=== PATIENT | female | born 1950 | race Caucasian/White ===

== ENCOUNTER → 2017-02-22 | Outpatient (CLI) | payer MEDICARE, OTHER ==
[2017-02-22 17:37] LABS: BUN/CREATININE RATIO 20 (0-10)
== END ==
LOC: LAB 15:02
PROVIDERS: Internal Medicine Nephrology
DX: N18.3 Chronic kidney disease, stage 3 (moderate) (principal); E55.9 Vitamin D deficiency, unspecified
CPT/HCPCS: 36415; 80053; 82043; 82570

== ENCOUNTER → 2020-10-22 | Outpatient (CLI) | payer MEDICARE, OTHER ==
[~2020-10-22] MED LIST: AMLODIPINE BESYL5 MG PO; BUSPAR 10MG10 MG PO; CYCLOBENZAPRINE10 MG PO; CYMBALTA60 MG PO; ESTRADIOL0.5 MG PO; FLONASE 0.05% N16 GM; GABAPENTIN600 MG PO; HYDROCODON-ACE1 EAC2 PO; LASIX20 MG PO; LEVOTHYROXINE25 MC1 PO; LIPITOR10 MG PO; LO-DOSE ASPIRIN81 MG PO; METOPROLOL TART50 MG PO; POTASSIUM CHLO10 MEQ PO; PROTONIX40 MG PO; ROPINIROLE HCL0.5 MG PO; TRAZODONE HCL150 MG PO; VENTOLIN/PROVE0.5 ML INH; VOLTAREN EC 7575 MG PO; [UNRECOGNIZED DRUG - OTHER] PO; ellipta inhaler
== END ==
LOC: LAB 11:20
PROVIDERS: Internal Medicine Nephrology
DX: N18.30 Chronic kidney disease, stage 3 unspecified (principal); E55.9 Vitamin D deficiency, unspecified
CPT/HCPCS: 36415; 80053; 82570; 84156

== ENCOUNTER → 2020-10-29 | Outpatient (CLI) | payer MEDICARE, OTHER | LOC: EMI 13:00 | DX: M51.27 Other intervertebral disc displacement, lumbosacral region (principal); M47.816 Spondylosis without myelopathy or radiculopathy, lumbar region; M48.061 Spinal stenosis, lumbar region without neurogenic claudication; M47.817 Spondylosis without myelopathy or radiculopathy, lumbosacral region; M48.07 Spinal stenosis, lumbosacral region | CPT/HCPCS: 72148 ==

== ENCOUNTER → 2020-12-23 | Outpatient (CLI) | payer MEDICARE, OTHER | LOC: KOH-I 12-19 14:30 | DX: F17.210 Nicotine dependence, cigarettes, uncomplicated (principal) | CPT/HCPCS: 71271 ==

== ENCOUNTER 2021-02-21 14:29 | Inpatient (IN) | payer MEDICARE, OTHER ==
[~2021-02-21] VITALS: Ht 160 cm; Wt 84.8 kg
[2021-02-21 15:59] LABS: HEMOGLOBIN 12.4 gm/dl (12.3-15.3); RED BLOOD COUNT 4.06 M/UL (4.00-5.10); WHITE BLOOD COUNT 6.2 K/UL (4.5-11.0)
[2021-02-21] MEDS ORDERED: CYCLOBENZAPRINE10 MG PO (20:20)
[2021-02-21] MEDS ORDERED: ESTRADIOL0.5 MG PO (20:21)
[2021-02-21] MEDS ORDERED: BUSPAR 10MG10 MG PO (20:21)
[2021-02-21] MEDS ORDERED: VOLTAREN EC 7575 MG PO (20:22)
[2021-02-21] MEDS ORDERED: ROPINIROLE HCL0.5 MG PO (20:22)
[2021-02-21] MEDS ORDERED: [UNRECOGNIZED DRUG - OTHER] PO (20:24)
[2021-02-21] MEDS ORDERED: LEVOTHYROXINE25 MC1 PO (20:25)
[2021-02-21] MEDS ORDERED: LO-DOSE ASPIRIN81 MG PO (20:25)
[2021-02-21] MEDS ORDERED: POTASSIUM CHLO10 MEQ PO (20:26)
[2021-02-21] MEDS ORDERED: GABAPENTIN600 MG PO (20:26)
[2021-02-21] MEDS ORDERED: HYDROCODON-ACE1 EAC2 PO (20:27)
[2021-02-21] MEDS ORDERED: LIPITOR10 MG PO (20:28)
[2021-02-21] MEDS ORDERED: AMLODIPINE BESYL5 MG PO (20:30)
[2021-02-21] MEDS ORDERED: PROTONIX40 MG PO (20:33)
[2021-02-21] MEDS ORDERED: ellipta inhaler (20:33)
[2021-02-21] MEDS ORDERED: LASIX20 MG PO (20:34)
[2021-02-21] MEDS ORDERED: FLONASE 0.05% N16 GM (20:34)
[2021-02-21] MEDS ORDERED: CYMBALTA60 MG PO (20:34)
[2021-02-21] MEDS ORDERED: METOPROLOL TART50 MG PO (20:35)
[2021-02-21] MEDS ORDERED: VENTOLIN/PROVE0.5 ML INH (20:36)
[2021-02-21] MEDS ORDERED: TRAZODONE HCL150 MG PO (20:36)
[2021-02-22 03:46] LABS: HEMOGLOBIN 12.8 gm/dl (12.3-15.3); RED BLOOD COUNT 4.16 M/UL (4.00-5.10); WHITE BLOOD COUNT 5.4 K/UL (4.5-11.0)
[2021-02-22 04:08] LABS: BUN/CREATININE RATIO 17 (0-10)
[2021-02-23 15:08] LABS: HEMOGLOBIN 13.1 gm/dl (12.3-15.3); RED BLOOD COUNT 4.23 M/UL (4.00-5.10); WHITE BLOOD COUNT 8.1 K/UL (4.5-11.0)
[2021-02-24 05:48] LABS: HEMOGLOBIN 12.1 gm/dl (12.3-15.3); RED BLOOD COUNT 4.01 M/UL (4.00-5.10)
[2021-02-24 05:53] LABS: WHITE BLOOD COUNT 5.6 K/UL (4.5-11.0)
--- NOTE | 2021-02-24 17:17 | NUR ---
PATIENT WAS UPSET ABOUT NOT FINDING OUT THE CAUSE OF HER TREMORS. I SPOKE WITH DR. TILLMAN AND DR. OSPINA AND THEY BOTH SAID THE MRI CAME BACK NEGATIVE AND FOR HER TO FOLLOW UP OUTPATIENT FOR FURTHER INVESTIGATION. I ASKED IF SHE WANTED ME TO HAVE THE DR. LING SEE HER PERSONALLY AND HE SAID NO.
== END 2021-02-24 17:43 | disposition home or self-care (01) | DRG 313 ==
LOC: ER1 14:29 → CDU 18:19 → MED SURG 4 19:49
PROVIDERS: Preventive Medicine Occupational Medicine; ADMIT Internal Medicine
DX: R07.89 Other chest pain (principal); I13.0 Hypertensive heart and chronic kidney disease with heart failure and stage 1 through stage 4 chronic kidney disease, or unspecified chronic kidney disease; J44.9 Chronic obstructive pulmonary disease, unspecified; I25.10 Atherosclerotic heart disease of native coronary artery without angina pectoris; F41.9 Anxiety disorder, unspecified; F32.9 Major depressive disorder, single episode, unspecified; I50.9 Heart failure, unspecified; N18.30 Chronic kidney disease, stage 3 unspecified; M19.90 Unspecified osteoarthritis, unspecified site; G62.9 Polyneuropathy, unspecified; E78.5 Hyperlipidemia, unspecified; E66.9 Obesity, unspecified; E03.9 Hypothyroidism, unspecified; M79.7 Fibromyalgia; K21.9 Gastro-esophageal reflux disease without esophagitis; G25.81 Restless legs syndrome; M62.838 Other muscle spasm; Z96.642 Presence of left artificial hip joint; I95.1 Orthostatic hypotension; Z90.710 Acquired absence of both cervix and uterus; Z84.89 Family history of other specified conditions; Z72.0 Tobacco use; Z90.49 Acquired absence of other specified parts of digestive tract; Z68.33 Body mass index [BMI] 33.0-33.9, adult
CPT/HCPCS: ECHO; 0240U; 36415; 36600; 70450; 70551; 71045; 80048; 80053; 81001; 82550; 82553; 82803; 82962; 83605; 83690; 83874; 83880; 84484; 85025; 85027; 85652; 86140; 87086; 93005; 93306; 93880; 94640; 94664; 94760; 96372; 96374; 97116-GP-CQ; 97161; 97165; 99285; G0378; J1650; J2060; J7030

== ENCOUNTER → 2021-03-14 | Outpatient (CLI) | payer MEDICARE, OTHER | LOC: EMI 15:58 | DX: M54.12 Radiculopathy, cervical region (principal); Z96.698 Presence of other orthopedic joint implants; M47.813 Spondylosis without myelopathy or radiculopathy, cervicothoracic region | CPT/HCPCS: 72141 ==

== ENCOUNTER → 2021-04-04 | Outpatient (CLI) | payer MEDICARE, OTHER | LOC: KOH-I 13:42 | DX: M50.30 Other cervical disc degeneration, unspecified cervical region (principal); M47.814 Spondylosis without myelopathy or radiculopathy, thoracic region | CPT/HCPCS: 72146 ==

== ENCOUNTER → 2021-04-25 | Outpatient (CLI) | payer MEDICARE, OTHER | LOC: LAB 16:04 | PROVIDERS: Internal Medicine Nephrology | DX: N18.30 Chronic kidney disease, stage 3 unspecified (principal); E55.9 Vitamin D deficiency, unspecified | CPT/HCPCS: 80053; 82570; 84156 ==

== ENCOUNTER → 2021-07-04 | Outpatient (CLI) | payer MEDICARE, OTHER | LOC: LAB 16:16 | PROVIDERS: Internal Medicine Nephrology | DX: N18.31 Chronic kidney disease, stage 3a (principal) | CPT/HCPCS: 80048 ==

== ENCOUNTER → 2021-08-22 | Outpatient (CLI) | payer MEDICARE, OTHER | LOC: LAB 17:42 | PROVIDERS: Internal Medicine Nephrology | DX: N18.31 Chronic kidney disease, stage 3a (principal) | CPT/HCPCS: 80053; 82570; 84156 ==

== ENCOUNTER → 2021-10-01 | Outpatient (CLI) | payer MEDICARE, OTHER | LOC: EXRD 14:44 | DX: N18.31 Chronic kidney disease, stage 3a (principal) | CPT/HCPCS: 76775; 76857 ==

== ENCOUNTER → 2021-12-15 | Outpatient (CLI) | payer MEDICARE, OTHER | LOC: EXRD 14:30 | DX: R60.9 Edema, unspecified (principal) | CPT/HCPCS: 93970 ==

== ENCOUNTER → 2022-05-18 | Outpatient (CLI) | payer MEDICARE, OTHER | LOC: LAB 15:07 | PROVIDERS: Internal Medicine Nephrology | DX: N18.31 Chronic kidney disease, stage 3a (principal) | CPT/HCPCS: 36415; 80053; 82570; 84156 ==

== ENCOUNTER → 2022-06-12 | Outpatient (CLI) | payer MEDICARE, OTHER | LOC: LAB 15:44 | DX: Z20.822 Contact with and (suspected) exposure to COVID-19 (principal) | CPT/HCPCS: U0002 ==